=== PATIENT | female | born 1945 | race Two or more races ===

== ENCOUNTER 2019-09-19 12:37 | Outpatient (CLI) | payer OTHER | END 2019-09-19 12:49 | disposition home or self-care (01) | LOC: NUCLEAR 12:37 | PROVIDERS: ATTEND Internal Medicine | DX: J45.40 Moderate persistent asthma, uncomplicated (principal); J41.0 Simple chronic bronchitis; J45.50 Severe persistent asthma, uncomplicated; E78.2 Mixed hyperlipidemia; I70.0 Atherosclerosis of aorta; I70.213 Atherosclerosis of native arteries of extremities with intermittent claudication, bilateral legs; I11.9 Hypertensive heart disease without heart failure; J30.89 Other allergic rhinitis; Z01.810 Encounter for preprocedural cardiovascular examination; J32.8 Other chronic sinusitis; I87.2 Venous insufficiency (chronic) (peripheral); M81.0 Age-related osteoporosis without current pathological fracture | CPT/HCPCS: 78708; A9539 ==

== ENCOUNTER 2023-10-14 10:30 | Emergency (ER) | payer OTHER ==
[~2023-10-14] VITALS: Ht 157.5 cm; Wt 67.6 kg
[2023-10-14] MEDS ORDERED: AMLODIPINE-OLM1 EAC2 PO (10:48)
[2023-10-14] MEDS ORDERED: CANDESARTAN CIL32 MG PO (10:48)
[2023-10-14] MEDS ORDERED: ZYLOPRIM100 MG PO (10:49)
[2023-10-14] MEDS ORDERED: CRESTOR40 MG PO (10:50)
[2023-10-14] MEDS ORDERED: MONTELUKAST SODI4 M1 PO (10:50)
[2023-10-14] MEDS ORDERED: BENZONATATE 100 MG CAPSULE PO ONE (11:30)
[2023-10-14] MEDS ORDERED: TRAMADOL HCL 50 MG TABLET PO ONE (11:30)
== END 2023-10-14 14:28 | disposition home or self-care (01) ==
LOC: ER 10:31
DX: R51.9 Headache, unspecified (principal); M54.50 Low back pain, unspecified; W01.0XXA Fall on same level from slipping, tripping and stumbling without subsequent striking against object, initial encounter; Y93.E5 Activity, floor mopping and cleaning; Y92.018 Other place in single-family (private) house as the place of occurrence of the external cause; J45.909 Unspecified asthma, uncomplicated; E78.00 Pure hypercholesterolemia, unspecified; K57.30 Diverticulosis of large intestine without perforation or abscess without bleeding; I10 Essential (primary) hypertension; G47.33 Obstructive sleep apnea (adult) (pediatric); R01.1 Cardiac murmur, unspecified; Z88.0 Allergy status to penicillin; Z88.2 Allergy status to sulfonamides; Z91.041 Radiographic dye allergy status; Z88.6 Allergy status to analgesic agent; I60.8 Other nontraumatic subarachnoid hemorrhage

== ENCOUNTER 2023-11-12 10:33 | Outpatient (CLI) | payer OTHER ==
[~2023-11-12 10:33] MED LIST: AMLODIPINE-OLM1 EAC2 PO; CANDESARTAN CIL32 MG PO; CRESTOR40 MG PO; MONTELUKAST SODI4 M1 PO; ZYLOPRIM100 MG PO
== END 2023-11-12 10:35 | disposition home or self-care (01) ==
LOC: TOM 10:33
PROVIDERS: ATTEND General Practice
DX: S06.6X0A Traumatic subarachnoid hemorrhage without loss of consciousness, initial encounter (principal)

== ENCOUNTER 2023-12-22 13:29 | Emergency (ER) | payer OTHER ==
[~2023-12-22] VITALS: Ht 157.5 cm; Wt 63.0 kg
[2023-12-22] MEDS ORDERED: LEVETIRACETAM250 MG PO (14:05)
[2023-12-22] MEDS ORDERED: METHYLPREDNISOLONE SOD SUCC 125 MG VIAL IV ONE (15:15)
[2023-12-22] MEDS ORDERED: AZITHROMYCIN 500 MG VIAL IV ONE (15:15)
[2023-12-22] MEDS ORDERED: GUAIFENESIN/DEXTROMETHORPHAN 10ML BLIST.PACK PO ONE (15:30)
[2023-12-22 16:13] LABS: HEMATOCRIT 33.9 % (36.0-45.00); HEMOGLOBIN 11.2 g/dL (12.0-15.00); MEAN CELL VOLUME 91.2 fL (80.00-100.00); MEAN CORPUSCULAR HEMOGLOBIN 30.2 pg (27.00-32.0); MEAN CORPUSCULAR HGB CONC 33.1 g/dl (32.0-36.0); PLATELET COUNT 389 K/uL (150-450); RED BLOOD COUNT 3.72 M/uL (4.00-6.00)
[2023-12-22 16:33] LABS: ALBUMIN 3.1 gm/dL (3.4-5.0); BILIRUBIN TOTAL 0.21 mg/dL (0.3-1.2); CALCIUM 9.4 mg/dL (8.5-10.1); CREATININE SERUM 2.01 mg/dL (0.55-1.02); GFR 23.96; GLOBULINA 4.9 G/DL (2.4-3.5); POTASSIUM 3.88 mEq/L (3.5-5.1)
[2023-12-22 16:35] LABS: C-REACTIVE PROTEIN 15.8 MG/DL (0.00-0.29)
[2023-12-22] MEDS ORDERED: ALBUTEROL SULFATE AD IH SCH (17:00)
[2023-12-22] MEDS ORDERED: XOPENEX CO1.25 MG/0. IH (18:17)
[2023-12-22] MEDS ORDERED: ZITHROMAX500 MG PO (18:17)
[2023-12-22] MEDS ORDERED: TUSNEL LIQUID178 ML PO (18:17)
[2023-12-22] MEDS ORDERED: MEDROLPACK PO (18:17)
== END 2023-12-22 19:30 | disposition home or self-care (01) ==
LOC: ER 13:31
PROVIDERS: Nurse Practitioner Family
DX: U07.1 COVID-19 (principal); I10 Essential (primary) hypertension; J45.909 Unspecified asthma, uncomplicated; N28.9 Disorder of kidney and ureter, unspecified; G47.39 Other sleep apnea; E78.49 Other hyperlipidemia; Z93.3 Colostomy status; Z88.0 Allergy status to penicillin; Z91.041 Radiographic dye allergy status; Z88.8 Allergy status to other drugs, medicaments and biological substances; J15.7 Pneumonia due to Mycoplasma pneumoniae; K57.30 Diverticulosis of large intestine without perforation or abscess without bleeding

== ENCOUNTER 2024-10-02 13:08 | Emergency (ER) | payer OTHER ==
[~2024-10-02] VITALS: Ht 160 cm; Wt 63.5 kg
[~2024-10-02 13:08] MED LIST changes: +LEVETIRACETAM250 MG PO; +MEDROLPACK PO; +TUSNEL LIQUID178 ML PO; +XOPENEX CO1.25 MG/0. IH; +ZITHROMAX500 MG PO
[2024-10-02] MEDS ORDERED: HYOSCYAMINE SULFATE 0.125 MG TAB.SUBL SL ONE (13:45)
[2024-10-02] MEDS ORDERED: HYOSCYAMINE SULFATE 0.125 MG TAB.SUBL ONE (14:10)
[2024-10-02 14:36] LABS: BASO % 0.4 % (0.1-1.2); EOS # 0.25 (0.04-0.54); EOS % 2.1 % (0.7-7.0); LYMPH # 2.30 (1.18-3.74); LYMPH % 19.2 % (19.3-53.1); MEAN PLATELET VOLUME 10.20 fl (9.4-12.4); MONO # 1.00 (0.24-0.82); MONO % 8.3 % (4.7-12.5); NEUT # 8.37 (1.56-6.13); NEUT % 69.8 % (34.0-71.1); RED CELL DISTRIBUTION WIDTH 13.8 % (11.6-14.4)
[2024-10-02 15:02] LABS: ALT/SGPT 25.0 U/L (12-78); AST/SGOT 28.0 U/L (15-37); BILIRUBIN TOTAL 0.44 mg/dL (0.3-1.2); BUN CREA RATIO 28.0 (7.0-25.0); CREATININE SERUM 1.73 mg/dL (0.55-1.02); GFR 28.41; GLOBULINA 4.1 G/DL (2.4-3.5); GLUCOSE FASTING 77.0 mg/dL (65-100); OSMOLALITY SERUM 296.0 MOSM/KG (275-295)
[2024-10-02 15:06] LABS: COVID-19 AG NEGATIVE (NEGATIVE)
[2024-10-02] MEDS ORDERED: METRONIDAZOLE500 MG PO (15:07)
[2024-10-02] MEDS ORDERED: PROBIOTIC1 EAC2 PO (15:07)
[2024-10-02] MEDS ORDERED: PEPCID AC20 MG PO (15:07)
[2024-10-02] MEDS ORDERED: LEVSIN/SL0.125 MG SL (15:07)
== END 2024-10-02 15:20 | disposition home or self-care (01) ==
LOC: ER 13:08
PROVIDERS: General Practice
DX: K57.90 Diverticulosis of intestine, part unspecified, without perforation or abscess without bleeding (principal); R19.7 Diarrhea, unspecified; Z20.822 Contact with and (suspected) exposure to COVID-19; I10 Essential (primary) hypertension; Z88.0 Allergy status to penicillin; Z88.6 Allergy status to analgesic agent; Z91.041 Radiographic dye allergy status